=== PATIENT | male | born 1950 | race Caucasian/White ===

== ENCOUNTER → 2016-03-11 | Outpatient (CLI) | payer OTHER | END | disposition home or self-care (01) | LOC: PCVCIMAG 08:25 | PROVIDERS: ATTEND Internal Medicine Cardiovascular Disease | DX: I25.10 Atherosclerotic heart disease of native coronary artery without angina pectoris (principal); I10 Essential (primary) hypertension; E78.5 Hyperlipidemia, unspecified; R42 Dizziness and giddiness | CPT/HCPCS: 78452; 93005; 93017; A9500 ==

== ENCOUNTER → 2017-03-08 | Outpatient (CLI) | payer OTHER | END | disposition home or self-care (01) | LOC: PCVCIMAG 08:41 | DX: I25.10 Atherosclerotic heart disease of native coronary artery without angina pectoris (principal); I10 Essential (primary) hypertension; K21.9 Gastro-esophageal reflux disease without esophagitis; E78.00 Pure hypercholesterolemia, unspecified; Z95.1 Presence of aortocoronary bypass graft; Z79.899 Other long term (current) drug therapy; Z79.82 Long term (current) use of aspirin; Z87.891 Personal history of nicotine dependence | CPT/HCPCS: 93005; 93306 ==

== ENCOUNTER → 2017-09-05 | Outpatient (CLI) | payer MEDICARE, OTHER | END | disposition home or self-care (01) | LOC: PCVCCLINIC 09:56 | DX: I25.10 Atherosclerotic heart disease of native coronary artery without angina pectoris (principal); I10 Essential (primary) hypertension; E78.00 Pure hypercholesterolemia, unspecified; K21.9 Gastro-esophageal reflux disease without esophagitis; Z87.891 Personal history of nicotine dependence; Z79.82 Long term (current) use of aspirin | CPT/HCPCS: 93005; G0463 ==

== ENCOUNTER → 2018-05-16 | Outpatient (CLI) | payer MEDICARE, OTHER ==
[~2018-05-16] MED LIST: REGADENOSON 0.4 MG/5 ML DISP.SYRIN. IV ONE
--- NOTE | 2018-05-16 11:12 | PCVCIMAG ---
APPROVED REPORT Imaging Protocol: Rest Tc-99m/Stress Tc-99m 1 day Study performed: 05/16/2018 09:06:05 Indication: CAD, Lightheadedness, Risk Stratification Patient Location: Out-Patient Stress Nurse: Virgie Jay RN, Cris Zelaya RN [place] Tech:MAHOGANY Machuca Ht: 5 ft 5 in Wt: 213 lbs BSA: 2.03 m2 HR: 70 bpm BP: 135/74 mmHg BMI: 35.44 Rhythm: Sinus Rhythm, nonspecific T wave abnormalities Medical History Medical History: Hyperlipidemia, HTN, CAD, Former Smoker Medications: Aspirin, Lisinopril, Lipitor Allergies: No known drug allergies Cardiac Risk Factors: Age Previous Cardiac Procedures: 2003 , CABG Pretest Chest Pain Characteristics: No chest pain Exercise History: Physically active Resting Data Rest SPECT myocardial perfusion imaging was performed in supine position 45 minutes following the intravenous injection of 10.7 mCi of Tc-99m Sestamibi. Time of rest injection: 0840 Date: 05/16/2018 Administration Route: IV Administration Site: Right AC Exercise Stress At peak stress, the patient was injected intravenously with 31.3mCi of Tc-99m Sestamibi. Time of stress injection: 1000 Date: 05/16/2018 Administration Route: IV Administration Site: Right AC Patient continued to exercise for 1 minute(s). Gated Stress SPECT was performed 30 minutes after stress injection. The images were gated to evaluate regional wall motion and calculate left ventricular ejection fraction. Stress Test Details Stress Test: Exercise stress testing was performed using a Fede protocol. HRMax Heart Rate (APMHR): 154 bpm Resting HR: 70 bpmTarget HR (85% APMHR): 130 bpm Max HR Achieved: 139 bpm % of APMHR: 90 Recovery HR: 78 bpm HR response to stress: Normal HR response to stress BP Resting BP: 135/74 mmHg Max BP: 173/79 mmHg Recovery BP: 160/71 mmHg BP response to stress: Normal blood pressure response to stress. ECG Resting ECG: Sinus Rhythm, nonspecific T wave abnormalities Stress ECG: Sinus Tachycardia, Inferior changes ST Change: Downsloping ST depression Maximum ST Deviation: 1 mm Arrhythmia: PVC's Recovery ECG: Sinus Rhythm, nonspecific T wave abnormalities Clinical Reason for Termination: Maximal effort, Fatigue Stress Symptoms: Dyspnea Exercise duration: 9 min 46 sec Exercise capacity: 12.50 METs Overall Exercise Capacity for Age: Normal Scale: Active Angina Score: None Symptoms resolved during recovery. Stress ECG Conclusion [place] Treadmill Score is 4.0 which is Moderate risk. Study Quality Study: Good Artifact: Moderate Diaphragmatic artifact Study Data Post stress, the left ventricular ejection was 58%.. SSS: 1 SRS: 1 SDS: 0 TID = 0.88. Perfusion There is a small area of moderately reduced uptake in the basal segment of the inferior wall which is seen on the stress images as well as the resting images. This area thickens and moves normally and is most consistent with attenuation artifact. Wall Motion Normal left ventricular wall motion. Nuclear Conclusion ECG Findings: equivocal Clinical Findings: negative for ischemia Nuclear Findings: negative for ischemia Exercise Capacity: normal Left Ventricular Function: normal This study is of low probability for inducible ischemia or prior infarct. Normal global and segmental LV systolic function. Artifact: Moderate Diaphragmatic artifact
== END | disposition home or self-care (01) ==
LOC: PCVCIMAG 09:03
PROVIDERS: ATTEND Internal Medicine Cardiovascular Disease
DX: I25.10 Atherosclerotic heart disease of native coronary artery without angina pectoris (principal); I10 Essential (primary) hypertension; E78.2 Mixed hyperlipidemia; K21.9 Gastro-esophageal reflux disease without esophagitis; Z87.891 Personal history of nicotine dependence; Z79.82 Long term (current) use of aspirin
CPT/HCPCS: 36415; 78452; 93017; A9500; G0463; J2785

== ENCOUNTER → 2018-10-16 | Outpatient (CLI) | payer MEDICARE, OTHER | END | disposition home or self-care (01) | LOC: PCVCCLINIC 12:56 | PROVIDERS: ATTEND Internal Medicine Cardiovascular Disease | DX: I25.10 Atherosclerotic heart disease of native coronary artery without angina pectoris (principal); I10 Essential (primary) hypertension; E78.00 Pure hypercholesterolemia, unspecified; K21.9 Gastro-esophageal reflux disease without esophagitis; Z87.891 Personal history of nicotine dependence | CPT/HCPCS: 93005; G0463 ==